=== PATIENT | female | born 1970 | race Two or more races ===

== ENCOUNTER 2019-05-15 19:14 | Emergency (ER) | payer MEDICAID, OTHER ==
[~2019-05-15] VITALS: Ht 154.9 cm; Wt 94.8 kg
[2019-05-15 19:27] VITALS: BP 157/94
--- NOTE | 2019-05-15 19:30 | NUR ---
TO LOBBY A/W BED AMBULATORY
--- NOTE | 2019-05-15 21:34 | NUR ---
PT AMBULATED TO BED 11
[2019-05-15] MEDS ORDERED: KETOROLAC 30 MG/ML VIAL IM ONE (22:20)
--- NOTE | 2019-05-15 22:40 | NUR ---
PT ASSESSMENT COMPLETE. PT LAYING SUPINE IN BED. FAMILY AT BEDSIDE. WILL CONTINUE TO MONITOR.
[2019-05-15 22:41] LABS: BASOPHILS % (AUTO) 0.2 % (0.0-2.0); EOSINOPHILS # (AUTO) 0.1 K/uL (0-0.4); HEMATOCRIT 41.5 % (36-48); HEMOGLOBIN 13.6 g/dL (12.0-16.0); LYMPHOCYTES # (AUTO) 1.6 K/uL (2.5-16.5); LYMPHOCYTES % (AUTO) 12.9 % (20.5-51.1); MEAN CORPUSCULAR HEMOGLOBIN 30 pg (27-31); MEAN CORPUSCULAR HGB CONC 33 g/dL (33-37); MEAN CORPUSCULAR VOLUME 90.8 fL (80-94); MONOCYTES # (AUTO) 0.6 K/uL (0.8-1.0); MONOCYTES % (AUTO) 4.7 % (1.7-9.3); NEUTROPHILS # (AUTO) 10.3 K/uL (1.8-7.7); NEUTROPHILS % (AUTO) 81.2 % (42.2-75.2); PLATELET COUNT (AUTO) 219 K/uL (140-450); RED BLOOD CELL COUNT(AUTO) 4.57 MIL/uL (4.20-5.40); RED CELL DISTRIBUTION WIDTH 13.6 % (11.6-13.7); WHITE BLOOD COUNT (AUTO) 12.7 K/uL (4.8-10.8)
[2019-05-15 23:02] LABS: APPEARANCE,URINE CLEAR (CLEAR); BILIRUBIN,URINE NEGATIVE (NEGATIVE); BLOOD, URINE NEGATIVE (NEGATIVE); COLOR,URINE YELLOW (YELLOW); LEUKOCYTE ESTERASE ,URINE NEGATIVE (NEGATIVE); NITRITE, URINE NEGATIVE (NEGATIVE); PH,URINE 8.5 (5.0-9.0); UGLUCOSE NEGATIVE (NEGATIVE)
[2019-05-15 23:06] LABS: ALBUMIN 3.6 g/dL (3.4-5.0); CARBON DIOXIDE 26.4 mmol/L (21-32); CREATININE 0.6 mg/dL (0.6-1.3); TOTAL BILIRUBIN 0.4 mg/dL (0.0-1.0)
[2019-05-15 23:14] LABS: ANION GAP 13.4 (8-16); POTASSIUM 3.8 mmol/L (3.5-5.1)
--- NOTE | 2019-05-15 23:51 | NUR ---
Patient sleeping in bed. Easy to wake. States improvment in pain.
--- NOTE | 2019-05-16 01:58 | NUR ---
PT RETURNED FROM CT VIA WHEELCHAIR
--- NOTE | 2019-05-16 03:00 | NUR ---
PT SEEN WITH EYES CLOSED. AROUSABLE TO LIGHT TOUCH AND NAME. VSS. BEDRAIL X1 UP. WILL CONTINUE TO MONITOR.
[2019-05-16 04:02] VITALS: BP 138/88
--- NOTE | 2019-05-16 04:02 | NUR ---
Patient discharged with v/s stable. Written and verbal after care instructions given and explained. Patient alert, oriented and verbalized understanding of instructions. Ambulatory with steady gait. All questions addressed prior to discharge. ID band removed. Patient advised to follow up with PMD. Rx of FLAGYL AND BENTYL given. Patient educated on indication of medication including possible reaction and side effects. Opportunity to ask questions provided and answered.
== END 2019-05-16 04:02 | disposition home or self-care (01) ==
LOC: MED 19:14
DX: R10.9 Unspecified abdominal pain (principal); R19.7 Diarrhea, unspecified
CPT/HCPCS: 36415; 74176; 80053; 81003; 81025; 83690; 85025; 96372; 99284; J1885